=== PATIENT | female | born 1990 | race Caucasian/White ===

== ENCOUNTER 2017-01-29 19:25 | Emergency (ER) | payer SELFPAY ==
[~2017-01-29] VITALS: Ht 160 cm; Wt 90.0 kg
[~2017-01-29 19:25] MED LIST: IBUP-232 PO; IBUP800T23 PO; [UNRECOGNIZED DRUG - CODE] PO
[2017-01-29 19:54] VITALS: BP 120/80; PULSE 81; RESP 18; TEMP 98.6; O2SAT 96
--- NOTE | 2017-01-29 20:04 | PD ---
HPI . cold symptoms and sore throat for 7 days Chief Complaint: Cold / Flu Symptoms Time Seen by Provider: 20:04 Travel History International Travel<30 days: No Contact w/Intl Traveler<30days: No Traveled to known affect area: No History of Present Illness HPI 27-year-old female with no past medical history here with complaints of cold- like symptoms for about 7 days. Patient has had sore throat, fever, chills, ear ache and a dry cough for approximately 7 days. She has missed 2 days of work and tells me that despite treatment with vitamins, airborne and ibuprofen she is not getting better. On examination she does have some aphthous ulcers on the back of her throat and she admits to history of aphthous ulcers in the past. She also reports b/l ear pain 06/01. Her vital signs are within normal limits. She denies any other symptoms. PFSH Past Medical History Anemia: Yes Diminished Hearing: No Reproductive: Yes (menorrhegia) Immunizations Current: Yes : 0 Social History Alcohol Use: Yes (OCC) Tobacco Use: No Substance Use: No Allergies-Medications (Allergen,Severity, Reaction): Coded Allergies: No Known Allergies (Unverified , 02/07/17) Reported Meds & Prescriptions Reported Meds & Active Scripts Active Zofran Odt (Ondansetron Odt) 4 Mg Tab 4 Mg SL Q6HR PRN Ceftin (Cefuroxime Axetil) 500 Mg Tab 500 Mg PO BID 7 Days Review of Systems General / Constitutional: No: Fever Eyes: No: Visual changes HENT: Positive: Sore Throat, Earache, No: Headaches Cardiovascular: No: Chest Pain or Discomfort Respiratory: Positive: Cough, No: Shortness of Breath Gastrointestinal: No: Abdominal Pain Genitourinary: No: Dysuria Musculoskeletal: No: Pain Skin: No Rash Neurologic: No: Weakness Psychiatric: No: Depression Endocrine: No: Polydipsia Hematologic/Lymphatic: No: Easy Bruising Physical Exam Narrative GENERAL: AAO x 3, no acute distress, Well-nourished, well-developed patient. SKIN: Warm and dry. No visible rashes or bruising. HEAD: Normocephalic and atraumatic. EYES: No scleral icterus. No injection or drainage. ENT: No nasal drainage noted. Mucous membranes pink. Airway patent.TM b/l with fluid. Maxillary sinus tenderness. aphthous ulcers scattered on posterior pharynx. no exudates or significant erythema NECK: Supple, trachea midline. No JVD. CARDIOVASCULAR: Regular rate and rhythm without murmurs, gallops, or rubs. RESPIRATORY: Breath sounds equal bilaterally. No accessory muscle use. No rhonchi or rales. GASTROINTESTINAL: Abdomen soft, non-tender, nondistended. EXTREMITIES: No cyanosis or edema. BACK: Nontender without obvious deformity. No CVA tenderness. PSYCH: AAO x 3, normal affect. Data Data Last Documented VS Orders Ibuprofen (Motrin) (01/29/17 20:15) MDM Medical Decision Making Medical Screen Exam Complete: Yes Emergency Medical Condition: Yes Medical Record Reviewed: Yes Differential Diagnosis acute sinusitis, less likely bronchitis, less likely pneumonia Narrative Course 27-year-old female with no past medical history here with complaints of cold- like symptoms for about 7 days. Patient has had sore throat, fever, chills, ear ache and a dry cough for approximately 7 days. She has missed 2 days of work and tells me that despite treatment with vitamins, airborne and ibuprofen she is not getting better. On examination she does have some aphthous ulcers on the back of her throat and she admits to history of aphthous ulcers in the past. She also reports b/l ear pain 7/10. Her vital signs are within normal limits. She denies any other symptoms. Patient seen and examined. She does have a aphthous ulcers on the back of her posterior pharynx. Her tonsils are slightly enlarged without exudates or significant erythema. She does have maxillary sinus tenderness and fluid in her eardrums bilaterally. Her lungs are clear without rhonchi, wheezing, Rales. Ibuprofen given for pain relief. Recommend a course of antibiotics for acute sinusitis. Discussed Magic mouthwash for aphthous ulcers. Patient was in agreement. Advise follow-up with primary care provider Patient verbalized understanding of instructions, questions were answered, and thanked me for their care. I advised them if their condition worsens, please return to the nearest emergency room for further care. Diagnosis Primary Impression: Acute sinusitis Qualified Code: J01.00 - Acute maxillary sinusitis, recurrence not specified Additional Impression: RECURRENT ORAL APHTHAE Patient Instructions: General Instructions, Sinusitis (ED) Additional Instructions: Please return to emergency department if your symptoms return or worsen. Follow up with your primary care provider. Take medications as prescribed. Use ibuprofen or Tylenol as needed for pain. Do not stick any Q-tips into your ears. As we discussed your symptoms will take a few days to resolve. Med/Other Pt SpecificInfo: Prescription(s) given Disposition: DISCHARGE HOME Condition: Jose DugganChasity PA Jan 29, 2017 20:04 Patient Instructions: General Instructions, Sinusitis (ED) Additional Instructions: Please return to emergency department if your symptoms return or worsen. Follow up with your primary care provider. Take medications as prescribed. Use ibuprofen or Tylenol as needed for pain. Do not stick any Q-tips into your ears. As we discussed your symptoms will take a few days to resolve. Med/Other Pt SpecificInfo: Prescription(s) given Scripts Ibuprofen 800 Mg [id number] Mg PO TID #20 TAB Prov:Jaden Cobb MD 01/29/17 Kyibkync-Ipawkacemrkfupl-Siktshnwp Liq (Magic Mouthwash Adult Liq)120 Ml Susp5 Ml SWISH-SWAL ACHS #120 ML Ref 0 Each 5mL contains: Nystatin 200,000units, Diphenhydramine 4.25mg, Viscous Lidocaine 10mg, Banuelos syrup 0.8 mL Prov:Jaden Cobb MD 01/29/17 Amoxicillin-Clavulanate (Augmentin)875-125 mg Trw911 Mg PO BID #20 TAB not for use in CrCl <30 ml/min. Prov:Jaden Cobb MD 01/29/17 Disposition: DISCHARGE HOME Condition: Jose Chasity Duggan Jan 29, 2017 20:04
[2017-01-29 20:05] VITALS: BP 120/80; PULSE 81; RESP 18; TEMP 98.6; O2SAT 96
[2017-01-29] MEDS ORDERED: AUGM875T PO (20:09)
[2017-01-29] MEDS ORDERED: MAGICADU2 SWISH-SWAL (20:09)
[2017-01-29] MEDS ORDERED: IBUP800T23 PO (20:13)
[2017-01-29] MEDS ORDERED: IBUPROFEN 800 MG TAB PO ONE (20:15)
== END 2017-01-29 20:43 | disposition home or self-care (01) ==
LOC: PHEFT 19:25
DX: J01.00 Acute maxillary sinusitis, unspecified (principal); K12.0 Recurrent oral aphthae; H92.03 Otalgia, bilateral; R50.9 Fever, unspecified; R05 Cough; Z86.2 Personal history of diseases of the blood and blood-forming organs and certain disorders involving the immune mechanism; Z87.42 Personal history of other diseases of the female genital tract
CPT/HCPCS: 99283

== ENCOUNTER 2017-02-07 22:26 | Emergency (ER) | payer SELFPAY ==
[~2017-02-07] VITALS: Ht 160 cm; Wt 91.0 kg
[~2017-02-07 22:26] MED LIST changes: +AUGM875T PO; -IBUP-232 PO; +MAGICADU2 SWISH-SWAL; -[UNRECOGNIZED DRUG - CODE] PO
[2017-02-07 22:30] VITALS: BP 128/91; PULSE 133; PULSE 146; RESP 22; TEMP 100.6; O2SAT 100
[2017-02-07 22:51] VITALS: BP 116/66; PULSE 125; RESP 20; TEMP 100.3; O2SAT 100
[2017-02-07 22:54] VITALS: BP 116/66; PULSE 125; RESP 20; TEMP 100.3; O2SAT 100
[2017-02-07 22:58] VITALS: RESP 20; O2SAT 100
[2017-02-07] MEDS ORDERED: SODIUM CHLOR 0.9% 1000 ML INJ 1,000 ML IV ONE (23:00)
[2017-02-07] MEDS ORDERED: KETOROLAC TROMETHAMINE 30 MG/ML (IVP) VIAL IV PUSH ONE (23:00)
[2017-02-07] MEDS ORDERED: ONDANSETRON HCL 4 MG/2 ML VIAL IV PUSH ONE (23:00)
--- NOTE | 2017-02-07 23:03 | PD ---
HPI Chief Complaint: Fever Time Seen by Provider: 22:39 Travel History International Travel<30 days: No Contact w/Intl Traveler<30days: No Traveled to known affect area: No History of Present Illness HPI 27-year-old female complains of fever, headache, sore throat, coughing congestion, body ache, nausea, abdominal cramping. Patient states that the symptoms started about 2 weeks ago. Patient was seen in emergency room 9 days ago and was diagnosed with sinusitis and otitis media. Patient was given prescription for Augmentin and Magic mouthwash and ibuprofen. Patient states that she has been taking Augmentin once a day because of work schedule. Patient has been taking ibuprofen intermittently for fever and aching pain. Patient states that the symptoms got better and get worse again for the past several days. Patient started running 102 fever to 103 fever for the past 2 days. Patient states that she has increasing throat swelling today and that has to be headache this afternoon. Patient states that headache aching headache started the front with radiation to the back of the head. Patient denies any visual change. Patient complains of swollen glands to the neck. Patient states that she had persistent productive cough. Patient states that she has intermittent abdominal cramping with nausea. Patient complains of body ache. Patient denies dysuria or frequency. Patient states that her last menstruation period was 3 months ago. Patient has history of irregular menstruation period. PFSH Past Medical History Hx Anticoagulant Therapy: No Anemia: Yes Cardiovascular Problems: No Chemotherapy: No Cerebrovascular Accident: No Diabetes: No Diminished Hearing: No Reproductive: Yes (menorrhegia) Respiratory: No Immunizations Current: Yes Tetanus Vaccination: < 5 Years Influenza Vaccination: No ?: Not LMP: 3 MONTHS AGO : 0 Past Surgical History Hysterectomy: No Social History Alcohol Use: Yes (OCC) Tobacco Use: No Substance Use: No Allergies-Medications (Allergen,Severity, Reaction): Coded Allergies: No Known Allergies (Unverified , 02/07/17) Reported Meds & Prescriptions Reported Meds & Active Scripts Active No Active Prescriptions or Reported Medications Review of Systems General / Constitutional: Positive: Fever Eyes: No: Visual changes HENT: Positive: Headaches Cardiovascular: No: Chest Pain or Discomfort Respiratory: Positive: Cough, No: Shortness of Breath Gastrointestinal: Positive: Nausea, Abdominal Pain Genitourinary: No: Dysuria Musculoskeletal: Positive: Pain Skin: No Rash Neurologic: No: Weakness Psychiatric: No: Depression Endocrine: No: Polydipsia Hematologic/Lymphatic: No: Easy Bruising Physical Exam Narrative GENERAL: Well-nourished, well-developed patient. SKIN: Warm and dry. HEAD: Normocephalic. EYES: No scleral icterus. No injection or drainage. TM: Clear. Throat: Nonerythematous. NECK: Supple, trachea midline. No JVD. Patient has mild anterior cervical lymphadenopathy. No meningismus CARDIOVASCULAR: Tachycardia rate and rhythm without murmurs, gallops, or rubs. RESPIRATORY: Breath sounds equal bilaterally. No accessory muscle use. GASTROINTESTINAL: Abdomen soft, non-tender, nondistended. MUSCULOSKELETAL: No cyanosis, or edema. BACK: Nontender without obvious deformity. No CVA tenderness. Data Data Last Documented VS Vital Signs Date Time Temp Pulse Resp B/P Pulse Ox O2 Delivery O2 Flow Rate FiO2 02/07/17 22:54 125 20 100 Room Air 02/07/17 22:51 100.3 116/66 Orders Complete Blood Count With Diff (02/07/17 22:50) Comprehensive Metabolic Panel (02/07/17 22:50) Urinalysis - C+S If Indicated (02/07/17 22:50) Influenzae A/B Antigen (02/07/17 22:50) Chest, Single Ap (02/07/17 22:50) Ct Brain W/O Iv Contrast(Rout) (02/07/17 22:50) Iv Access Insert/Monitor (02/07/17 22:50) Ecg Monitoring (02/07/17 22:50) Oximetry (02/07/17 22:50) Ed Urine Pregnancytest Poc (02/07/17 22:50) Ns (Bolus) Inj (02/07/17 23:00) Ketorolac Inj (Toradol Inj) (02/07/17 23:00) Ondansetron Inj (Zofran Inj) (02/07/17 23:00) MDM Medical Decision Making Medical Screen Exam Complete: Yes Emergency Medical Condition: Yes Differential Diagnosis Differential diagnosis including viral syndrome, sinusitis, pharyngitis, bronchitis, pneumonia, gastroenteritis, UTI, pyelonephritis, sepsis. Narrative Course 27-year-old female with fever, headache, sore throat, coughing congestion, abdominal cramping, nausea, body ache. Normal saline solution 1 L IV bolus. Toradol 30 mg IV. Zofran 4 mg IV. Scripts No Active Prescriptions or Reported Meds Johnathan Jaqeuz MD Feb 07, 2017 23:03
--- NOTE | 2017-02-07 23:47 | RADHPO ---
EXAM DATE/TIME: 02/07/2017 23:27 [facility] COMPARISON: No previous studies available for comparison. INDICATIONS : Fever, cough, and body aches. MEDICAL HISTORY : None. SURGICAL HISTORY : None. ENCOUNTER: Initial ACUITY: 1 day PAIN SCORE: 4/10 LOCATION: Bilateral chest FINDINGS: A single view of the chest demonstrates the lungs to be symmetrically aerated without evidence of mas s, infiltrate or effusion. The cardiomediastinal contours are unremarkable. Osseous structures are intact. CONCLUSION: No acute disease. Nolan Harper MD on February 07, 2017 at 23:46 Board Certified Radiologist. This report was verified electronically.
[2017-02-07 23:51] LABS: BASOPHIL % 0.2 % (0.0-2.0); EOSINOPHIL % 0.2 % (0.0-4.0); HEMATOCRIT 35.1 % (35.0-46.0); LYMPH % 8.5 % (9.0-44.0); LYMPHOCYTE # 1.2 TH/MM3 (1.0-4.8); MEAN CELL VOLUME 67.2 FL (80.0-100.0); MEAN CORPUSCULAR HEMOGLOBIN 20.9 PG (27.0-34.0); MONO % 4.8 % (0.0-8.0); NEUT % 86.3 % (16.0-70.0); PLATELET COUNT 367 TH/MM3 (150-450); RED BLOOD COUNT 5.22 MIL/MM3 (4.00-5.30); RED CELL DISTRIBUTION WIDTH 17.5 % (11.6-17.2); WHITE BLOOD COUNT 13.9 TH/MM3 (4.0-11.0)
[2017-02-07 23:52] LABS: BLOOD, URINE NEG (NEG); GLUCOSE,URINE NEG (NEG); KETONE, URINE NEG (NEG); NITRITE,URINE NEG (NEG)
[2017-02-07 23:57] VITALS: BP 103/62; PULSE 113; RESP 18; O2SAT 99
[2017-02-07 23:58] LABS: RBC, URINE 0-3 /hpf (0-3); SQUAMOUS EPITHELIAL CELL URINE 0-5 /hpf (0-5); URINE COLOR YELLOW (YELLW/STRAW); WBC, URINE 0-2 /hpf (0-5)
[2017-02-07 23:58] LABS: CHLORIDE 107 MEQ/L (98-107); POTASSIUM 3.7 MEQ/L (3.5-5.1); SODIUM (NA) 142 MEQ/L (136-145)
[2017-02-07 23:59] LABS: COMMENT (UR) CULT NOT INDICATED; CULTURE IF INDICATED CULT NOT INDICATED
[2017-02-08 00:01] LABS: ANION GAP 9 MEQ/L (5-15); BICARBONATE 26.5 MEQ/L (21.0-32.0)
[2017-02-08 00:02] LABS: BLOOD UREA NITROGEN 9 MG/DL (7-18)
[2017-02-08 00:03] LABS: HEMO FLAGS AUTO DIFF
[2017-02-08 00:04] LABS: ALT (GPT) 34 U/L (10-53)
[2017-02-08 00:05] LABS: AST (GOT) 11 U/L (15-37); GLOMERULAR FILTRATION RATE 91 ML/MIN (>89)
[2017-02-08 00:06] LABS: TOTAL BILIRUBIN ADULT 0.5 MG/DL (0.2-1.0)
[2017-02-08 00:07] LABS: ALKALINE PHOSPHATASE 93 U/L (45-117)
--- NOTE | 2017-02-08 00:12 | PD ---
Physical Exam Date Seen by Provider: Feb 08, 2017 Time Seen by Provider: 00:11 Narrative Accepted in transfer of care from Dr. Jaquez Data Data Last Documented VS Vital Signs Date Time Temp Pulse Resp B/P Pulse Ox O2 Delivery O2 Flow Rate FiO2 02/08/17 00:59 99 18 93/63 99 Room Air 02/08/17 00:35 98.4 Orders Complete Blood Count With Diff (02/07/17 22:50) Comprehensive Metabolic Panel (02/07/17 22:50) Urinalysis - C+S If Indicated (02/07/17 22:50) Influenzae A/B Antigen (02/07/17 22:50) Chest, Single Ap (02/07/17 22:50) Ct Brain W/O Iv Contrast(Rout) (02/07/17 22:50) Iv Access Insert/Monitor (02/07/17 22:50) Ecg Monitoring (02/07/17 22:50) Oximetry (02/07/17 22:50) Ed Urine Pregnancytest Poc (02/07/17 22:50) Sodium Chlor 0.9% 1000 Ml Inj (Ns 1000 M (02/07/17 23:00) Ketorolac Inj (Toradol Inj) (02/07/17 23:00) Ondansetron Inj (Zofran Inj) (02/07/17 23:00) Sodium Chlor 0.9% 1000 Ml Inj (Ns 1000 M (02/08/17 01:15) Ceftriaxone Inj (Rocephin Inj) (02/08/17 01:15) Labs Laboratory Tests Test 02/07/17 02/07/17 23:25 23:30 Urine Color YELLOW Urine Turbidity CLEAR Urine pH 8.0 Urine Specific [place] 1.013 Urine Protein NEG mg/dL Urine Glucose (UA) NEG mg/dL Urine Ketones NEG mg/dL Urine Occult Blood NEG Urine Nitrite NEG Urine Bilirubin NEG Urine Leukocyte Esterase NEG Urine RBC 0-3 /hpf Urine WBC 0-2 /hpf Urine Squamous Epithelial 0-5 /hpf Cells Microscopic Urinalysis Comment CULT NOT INDICATED White Blood Count 13.9 TH/MM3 Red Blood Count 5.22 MIL/MM3 Hemoglobin 10.9 GM/DL Hematocrit 35.1 % Mean Corpuscular Volume 67.2 FL Mean Corpuscular Hemoglobin 20.9 PG Mean Corpuscular Hemoglobin 31.0 % Concent Red Cell Distribution Width 17.5 % Platelet Count 367 TH/MM3 Mean Platelet Volume 7.9 FL Neutrophils (%) (Auto) 86.3 % Lymphocytes (%) (Auto) 8.5 % Monocytes (%) (Auto) 4.8 % Eosinophils (%) (Auto) 0.2 % Basophils (%) (Auto) 0.2 % Neutrophils # (Auto) 12.0 TH/MM3 Lymphocytes # (Auto) 1.2 TH/MM3 Monocytes # (Auto) 0.7 TH/MM3 Eosinophils # (Auto) 0.0 TH/MM3 Basophils # (Auto) 0.0 TH/MM3 CBC Comment AUTO DIFF Differential Comment AUTO DIFF CONFIRMED Platelet Estimate NORMAL Platelet Morphology Comment ENLARGED Sodium Level 142 MEQ/L Potassium Level 3.7 MEQ/L Chloride Level 107 MEQ/L Carbon Dioxide Level 26.5 MEQ/L Anion Gap 9 MEQ/L Blood Urea Nitrogen 9 MG/DL Creatinine 0.77 MG/DL Estimat Glomerular Filtration 91 ML/MIN Rate Random Glucose 103 MG/DL Calcium Level 8.4 MG/DL Total Bilirubin 0.5 MG/DL Aspartate Amino Transf 11 U/L (AST/SGOT) Alanine Aminotransferase 34 U/L (ALT/SGPT) Alkaline Phosphatase 93 U/L Total Protein 7.8 GM/DL Albumin 3.6 GM/DL [facility] Medical Record Reviewed: Yes Supervised Visit with DANYELL: No Interpretation(s) CBC & BMP Diagram 02/07/17 23:30 Vital Signs Date Time Temp Pulse Resp B/P Pulse Ox O2 Delivery O2 Flow Rate FiO2 02/08/17 00:59 99 18 93/63 99 Room Air 02/08/17 00:59 99 18 99 Room Air 02/08/17 00:35 98.4 02/08/17 00:34 18 02/07/17 23:57 113 18 103/62 99 Room Air 02/07/17 22:58 20 100 Room Air 02/07/17 22:54 100.3 125 20 116/66 100 Room Air 02/07/17 22:54 125 20 100 Room Air 02/07/17 22:51 100.3 125 20 116/66 100 02/07/17 22:30 100.6 133 22 128/[address] brain noncontrast per reading radiologist Dr. Harper no acute abnormality; chest x-ray reading per radiologist Dr. Harper no lobar infiltrate Urinalysis found to be in normal range Influenza A/B antigen negative [id number] hCG negative Differential Diagnosis Accepted in transfer of care from Dr. Jaquez please refer to his dictation Narrative Course Accepted in transfer of care from Dr. Jaquez; follow up on pending labs Patient informed of lab results reports that the reason she was taking the medication Augmentin 875 mg once daily instead of twice daily as prescribed as she cannot tolerate the medication causing too much nausea and GI upset; CT brain noncontrast reveals no acute abnormality chest x-ray reveals no lobar infiltrate white count is elevated 13,900 with left shift however chemistries urinalysis and influenza antigen studies all within normal range or negative. Patient states that she does not feel she can continue with the Augmentin even though I'm going to write her prescription for Zofran and therefore will have the patient discontinue Augmentin we'll change antibiotic to Ceftin. Patient received 1 dose of Rocephin 1 g IV piggyback while in the emergency department. Patient is otherwise stable for outpatient management. Diagnosis Primary Impression: Febrile respiratory illness Referrals: Primary Care Physician call for appointment Patient Instructions: General Instructions Departure Forms: Tests/Procedures, Work Release Special Instructions: no work x 1 day Additional Instruction: Increase fluid hydration Discontinue Augmentin and begin Ceftin as prescribed Take nausea vomiting medicine as prescribed as needed Take acetaminophen/Tylenol every 4 hours as needed for fever 100.4F or greater or for minor pain Take ibuprofen/Advil/Motrin every 6-8 hours as needed for fever 100.4F or greater or for pain associated with inflammation Return to the emergency department for any concerns or change in condition No work times one day Follow-up with your primary care provider Med/Other Pt SpecificInfo: Prescription(s) given Scripts Ondansetron Odt (Zofran Odt)4 Mg Tab4 Mg SL Q6HR PRN (Nausea/Vomiting) #10 TAB Ref 0 Prov:Serena Cid MD 02/08/17 Cefuroxime (Ceftin)500 Mg Ijn088 Mg PO BID 7 Days Ref 0 Prov:Serena Cid MD 02/08/17 Disposition: 01 DISCHARGE HOME Condition: Stable Serena Cid MD Feb 08, 2017 00:12
--- NOTE | 2017-02-08 00:19 | RADHPO ---
EXAM DATE/TIME: 02/07/2017 23:57 [facility] COMPARISON: No previous studies available for comparison. INDICATIONS : Headache for two weeks. RADIATION DOSE: 59.56 CTDIvol (mGy) MEDICAL HISTORY : None SURGICAL HISTORY : None. ENCOUNTER: Initial ACUITY: 2 weeks PAIN SCALE: 5/10 LOCATION: cranial TECHNIQUE: Multiple contiguous axial images were obtained of the head. Using automated exposure control and adj ustment of the mA and/or kV according to patient size, radiation dose was kept as low as reasonably a chievable to obtain optimal diagnostic quality images. FINDINGS: CEREBRUM: The ventricles are normal for age. No evidence of midline shift, mass lesion, hemorrhage or acute in farction. No extra-axial fluid collections are seen. POSTERIOR FOSSA: The cerebellum and brainstem are intact. The 4th ventricle is midline. The cerebellopontine angle i s unremarkable. EXTRACRANIAL: The visualized portion of the orbits is intact. SKULL: The calvaria is intact. No evidence of skull fracture. CONCLUSION: Normal examination for a patient of this age. Nolan Harper MD on February 08, 2017 at 0:16 Board Certified Radiologist. This report was verified electronically.
[2017-02-08 00:35] VITALS: TEMP 98.4
[2017-02-08 00:59] VITALS: BP 93/63; PULSE 99; RESP 18; O2SAT 99
[2017-02-08 01:10] LABS: PLATELET ESTIMATE SMEAR NORMAL (NORMAL); PLATELET MORPHOLOGY ENLARGED (NORMAL); SCAN/DIFF AUTO DIFF CONFIRMED
[2017-02-08] MEDS ORDERED: ZOFR4TAB3 SL (01:15)
[2017-02-08] MEDS ORDERED: SODIUM CHLOR 0.9% 1000 ML INJ 1,000 ML IV ONE (01:15)
[2017-02-08] MEDS ORDERED: cefTRIAXone INJ 1,000 MG in SODIUM CHLORIDE 0.9% INJ 100 ML IV ONE (01:15)
[2017-02-08] MEDS ORDERED: CEFT500T3 PO (01:15)
[2017-02-08 02:15] VITALS: BP 92/50; PULSE 88; RESP 18; O2SAT 99
== END 2017-02-08 02:33 | disposition home or self-care (01) ==
LOC: PHED 22:26
DX: J98.9 Respiratory disorder, unspecified (principal); R50.9 Fever, unspecified; R51 Headache; J02.9 Acute pharyngitis, unspecified; R05 Cough; D64.9 Anemia, unspecified; R00.0 Tachycardia, unspecified; R11.0 Nausea
CPT/HCPCS: 70450; 71010; 80053; 81001; 84703; 85025; 87804; 96361; 96365; 96375; 99284; J0696; J1885; J2405; J7030

== ENCOUNTER 2017-09-09 15:46 | Observation (INO) | payer SELFPAY ==
[~2017-09-09] VITALS: Ht 160 cm; Wt 88.1 kg
[2017-09-09] VITALS (7 sets, daily range): BP systolic 104–126; BP diastolic 56–66; PULSE 99–116; RESP 16–18; TEMP 97.9–100.7; O2SAT 96–98
[~2017-09-09 15:46] MED LIST changes: -AUGM875T PO; +CEFT500T3 PO; -IBUP800T23 PO; -MAGICADU2 SWISH-SWAL; +ZOFR4TAB3 SL
--- NOTE | 2017-09-09 18:23 | PD ---
HPI Chief Complaint: GI Complaint Time Seen by Provider: 18:07 Travel History International Travel<30 days: No Contact w/Intl Traveler<30days: No Traveled to known affect area: No History of Present Illness HPI 27yo F with no significant PMH presents to the ED with multiple complaints. Pt states that she started feeling nauseous 3 days ago and was vomiting and then started having headache as well as generalized weakness, muscle ache. Also with cough and brown vaginal discharge. Said her abdomen is sore from vomiting. Also with right sided chest pain with cough that is sharp. PFSH Past Medical History Hx Anticoagulant Therapy: No Anemia: Yes Cardiovascular Problems: No Chemotherapy: No Cerebrovascular Accident: No Diabetes: No Diminished Hearing: No Reproductive: Yes (menorrhegia) Respiratory: No Immunizations Current: Yes Influenza Vaccination: No ?: Not LMP: 08/27/17 : 0 Past Surgical History Hysterectomy: No Social History Alcohol Use: Yes (OCC) Tobacco Use: No Substance Use: No Allergies-Medications (Allergen,Severity, Reaction): Coded Allergies: No Known Allergies (Unverified , 09/09/17) Reported Meds & Prescriptions Reported Meds & Active Scripts Active Review of Systems Except as stated in HPI: all other systems reviewed are Neg Physical Exam Narrative GENERAL: 27yo F in mild distress. SKIN: Focused skin assessment warm/dry. HEAD: Atraumatic. Normocephalic. EYES: Pupils equal and round. No scleral icterus. No injection or drainage. ENT: No nasal bleeding or discharge. Mucous membranes pink and moist. NECK: No nuchal rigidity. +Cervical anterior lymphadenopathy. CARDIOVASCULAR: Regular rate and rhythm. No murmur appreciated. RESPIRATORY: No accessory muscle use. Clear to auscultation. Breath sounds equal bilaterally. PELVIC: +Blood. No CMT or adnexal tenderness bilaterally. GASTROINTESTINAL: Abdomen soft, mild diffuse ttp. No rebound tenderness or guarding. MUSCULOSKELETAL: No obvious deformities. No clubbing. No cyanosis. No edema. NEUROLOGICAL: Awake and alert. No obvious cranial nerve deficits. Motor grossly within normal limits. Normal speech. PSYCHIATRIC: Appropriate mood and affect; insight and judgment normal. Data Data Last Documented VS Vital Signs Date Time Temp Pulse Resp B/P (MAP) Pulse Ox O2 Delivery O2 Flow Rate FiO2 09/09/17 21:00 99.3 99 18 106/56 (73) 98 Room Air Orders Orders Blood Culture (09/09/17 18:17) Complete Blood Count With Diff (09/09/17 18:17) Troponin I (09/09/17 18:17) Electrocardiogram (09/09/17 ) Chest, Single Ap (09/09/17 ) Bhcg Screen Qualitative (09/09/17 18:17) Lactic Acid Sepsis Protocol (09/09/17 18:17) Prothrombin Time / Inr (Pt) (09/09/17 18:17) Act Partial Throm Time (Ptt) (09/09/17 18:17) Comprehensive Metabolic Panel (09/09/17 18:17) Sodium Chlor 0.9% 1000 Ml Inj (Ns 1000 M (09/09/17 18:30) Magnesium (Mg) (09/09/17 18:17) Urinalysis - C+S If Indicated (09/09/17 18:17) Influenzae A/B Antigen (09/09/17 18:17) Gc And Chlamydia Pcr (09/09/17 18:17) Wet Prep Profile (09/09/17 18:17) Ketorolac Inj (Toradol Inj) (09/09/17 18:30) Ondansetron Inj (Zofran Inj) (09/09/17 18:45) Ceftriaxone Inj (Rocephin Inj) (09/09/17 19:15) Azithromycin Inj (Zithromax Inj) (09/09/17 19:15) Ondansetron Inj (Zofran Inj) (09/09/17 20:45) Sodium Chlor 0.9% 1000 Ml Inj (Ns 1000 M (09/09/17 20:45) Ct Pulmonary Angiogram (09/09/17 20:45) Admit Order (Ed Use Only) (09/09/17 21:23) Labs Laboratory Tests Test 09/09/17 18:10 09/09/17 18:15 09/09/17 18:30 09/09/17 18:50 Urine Color YELLOW Urine Turbidity SLIGHT Urine pH 6.0 Urine Specific [place] 1.034 Urine Protein 100 mg/dL Urine Glucose (UA) NEG mg/dL Urine Ketones 80 OR GREATER mg/dL Urine Occult Blood LARGE Urine Nitrite NEG Urine Bilirubin NEG Urine Leukocyte Esterase NEG Urine RBC 100-200 /hpf Urine WBC 0-2 /hpf Urine Squamous Epithelial Cells 6-8 /hpf Urine Mucus MOD /lpf Microscopic Urinalysis Comment CULT NOT INDICATED White Blood Count 19.4 TH/MM3 Red Blood Count 5.12 MIL/MM3 Hemoglobin 11.1 GM/DL Hematocrit 36.0 % Mean Corpuscular Volume 70.2 FL Mean Corpuscular Hemoglobin 21.6 PG Mean Corpuscular Hemoglobin Concent 30.8 % Red Cell Distribution Width 15.3 % Platelet Count 305 TH/MM3 Mean Platelet Volume 8.4 FL Neutrophils (%) (Auto) 86.5 % Lymphocytes (%) (Auto) 7.0 % Monocytes (%) (Auto) 6.3 % Eosinophils (%) (Auto) 0.0 % Basophils (%) (Auto) 0.2 % Neutrophils # (Auto) 16.8 TH/MM3 Lymphocytes # (Auto) 1.4 TH/MM3 Monocytes # (Auto) 1.2 TH/MM3 Eosinophils # (Auto) 0.0 TH/MM3 Basophils # (Auto) 0.0 TH/MM3 CBC Comment AUTO DIFF Differential Total Cells Counted 100 Neutrophils % (Manual) 83 % Band Neutrophils % 5 % Lymphocytes % 7 % Monocytes % 4 % Neutrophils # (Manual) 17.3 TH/MM3 Metamyelocytes 1 % Differential Comment FINAL DIFF MANUAL Dohle Bodies PRESENT Platelet Estimate NORMAL Platelet Morphology Comment NORMAL Ovalocytes 1+ Prothrombin Time 13.7 SEC Prothromb Time International Ratio 1.2 RATIO Activated Partial Thromboplast Time 34.3 SEC Blood Urea Nitrogen 8 MG/DL Creatinine 0.87 MG/DL Random Glucose 91 MG/DL Total Protein 8.5 GM/DL Albumin 3.6 GM/DL Calcium Level 8.7 MG/DL Magnesium Level 1.8 MG/DL Alkaline Phosphatase 92 U/L Aspartate Amino Transf (AST/SGOT) 15 U/L Alanine Aminotransferase (ALT/SGPT) 31 U/L Total Bilirubin 1.1 MG/DL Sodium Level 134 MEQ/L Potassium Level 3.6 MEQ/L Chloride Level 99 MEQ/L Carbon Dioxide Level 23.5 MEQ/L Anion Gap 12 MEQ/L Estimat Glomerular Filtration Rate 79 ML/MIN Troponin I LESS THAN 0.02 NG/ML Beta HCG, Qualitative LESS THAN 1 MIU/ML Lactic Acid Level 1.7 mmol/L Clue Cells (Wet Prep) NONE SEEN Vaginal Trichomonas (Wet Prep) NONE SEEN Vaginal Yeast (Wet Prep) NONE SEEN Chlamydia trachomatis DNA (PCR) NOT DETECTED Neisseria gonorrhoeae DNA (PCR) NOT DETECTED MDM Medical Decision Making Medical Screen Exam Complete: Yes Emergency Medical Condition: Yes Differential Diagnosis Influenza vs. viral syndrome vs. UTI vs. pneumonia Narrative Course 27yo F with fever and multiple medical complaints. Labs reviewed, leukocytosis at 19.4. Bilirubin 1.1. Lactic acid pending. pending. UA showed squamous and RBC. Culture not indicated. Wet prep negative. CXR showed abnormal right hilar region asymmetrically more dense than left without enlargement could represent occult infiltrate. Pt will be empirically treated with IV antibiotics. Pt just got zofran, NS IVF and toradol at end of my shift and sign out to next team to reevaluate after medications and follow up influenza, lactic acid. Diagnosis Primary Impression: Sepsis Qualified Codes: A41.9 - Sepsis, unspecified organism Scripts Levofloxacin (Levofloxacin) 500 Mg Tablet 500 MG PO DAILY for Infection, #5 TAB 0 Refills Prov: Monalisa Royal MD 09/10/17 Lorraine Smith DO Sep 09, 2017 18:23
[2017-09-09] MEDS ORDERED: SODIUM CHLOR 0.9% 1000 ML INJ 1,000 ML IV ONE (18:30)
[2017-09-09] MEDS ORDERED: KETOROLAC TROMETHAMINE 30 MG/ML (IVP) VIAL IV PUSH ONE (18:30)
--- NOTE | 2017-09-09 18:36 | RADRPT ---
EXAM DATE/TIME: 09/09/2017 18:25 [facility] COMPARISON: CHEST SINGLE AP, February 07, 2017, 23:27. INDICATIONS : Chest pain and nausea. MEDICAL HISTORY : None. SURGICAL HISTORY : None. ENCOUNTER: Initial ACUITY: 3 days PAIN SCORE: 3/10 LOCATION: Bilateral chest FINDINGS: A single view of the chest demonstrates the lungs to be symmetrically aerated without evidence of mas s, infiltrate or effusion. The cardiomediastinal contours are unremarkable. Osseous structures are intact. The right hilum is somewhat more prominent asymmetric in density relative to left base is que stioned as to an occult summation of an infiltrate CONCLUSION: Abnormal right hilar region asymmetrically more dense than the left without enlargement which could r epresent an occult infiltrate. Phani Sumner MD on September 09, 2017 at 18:33 Board Certified Radiologist. This report was verified electronically.
[2017-09-09 18:38] LABS: CHLORIDE 99 MEQ/L (98-107); POTASSIUM 3.6 MEQ/L (3.5-5.1); SODIUM (NA) 134 MEQ/L (136-145)
[2017-09-09 18:39] LABS: BLOOD, URINE LARGE (NEG); GLUCOSE,URINE NEG (NEG); KETONE, URINE 80 OR GREATER mg/dL (NEG); NITRITE,URINE NEG (NEG)
[2017-09-09 18:40] LABS: AUTOMATED NEUTROPHIL # 16.8 TH/MM3 (1.8-7.7); BASOPHIL % 0.2 % (0.0-2.0); HEMO FLAGS AUTO DIFF; LYMPHOCYTE # 1.4 TH/MM3 (1.0-4.8); MEAN CELL VOLUME 70.2 FL (80.0-100.0); MEAN CORPUSCULAR HEMOGLOBIN 21.6 PG (27.0-34.0); MEAN CORPUSCULAR HGB CONC 30.8 % (32.0-36.0); MONO % 6.3 % (0.0-8.0); NEUT % 86.5 % (16.0-70.0); PLATELET COUNT 305 TH/MM3 (150-450); RED BLOOD COUNT 5.12 MIL/MM3 (4.00-5.30); RED CELL DISTRIBUTION WIDTH 15.3 % (11.6-17.2); WHITE BLOOD COUNT 19.4 TH/MM3 (4.0-11.0)
[2017-09-09 18:42] LABS: ANION GAP 12 MEQ/L (5-15); APTT (PATIENT) 34.3 SEC (24.3-30.1); BICARBONATE 23.5 MEQ/L (21.0-32.0); BLOOD UREA NITROGEN 8 MG/DL (7-18); INTERNATIONAL NORMALIZED RATIO 1.2 RATIO; MAGNESIUM 1.8 MG/DL (1.5-2.5); PROTHROMBIN TIME - PATIENT 13.7 SEC (9.8-11.6)
[2017-09-09 18:44] LABS: URINE COLOR YELLOW (YELLW/STRAW)
[2017-09-09 18:45] LABS: COMMENT (UR) CULT NOT INDICATED; CULTURE IF INDICATED CULT NOT INDICATED; MUCUS URINE MOD /lpf (OCC); RBC, URINE 100-200 /hpf (0-3); WBC, URINE 0-2 /hpf (0-5)
[2017-09-09 18:45] LABS: ALT (GPT) 31 U/L (10-53); AST (GOT) 15 U/L (15-37); GLOMERULAR FILTRATION RATE 79 ML/MIN (>89)
[2017-09-09] MEDS ORDERED: ONDANSETRON HCL 4 MG/2 ML VIAL IV PUSH ONE (18:45)
[2017-09-09 18:46] LABS: TOTAL BILIRUBIN ADULT 1.1 MG/DL (0.2-1.0)
[2017-09-09 18:48] LABS: ALKALINE PHOSPHATASE 92 U/L (45-117)
[2017-09-09 19:08] LABS: BHCG SCREEN QUALITATIVE LESS THAN 1 MIU/ML (0-5)
[2017-09-09] MEDS ORDERED: AZITHROMYCIN INJ 500 MG in SODIUM CHLOR 0.9% 250 ML INJ 250 ML IV ONE (19:15)
[2017-09-09] MEDS ORDERED: cefTRIAXone INJ 1,000 MG in SODIUM CHLORIDE 0.9% INJ 100 ML IV ONE (19:15)
[2017-09-09 19:19] LABS: BANDS 5 % (0-6); METAMYELOCYTES 1 % (0-1); NEUTROPHIL # MANUAL DIFF 17.3 TH/MM3 (1.8-7.7); POLYS (SEG NEUTROPHILS) 83 % (16-70); WBC DIFF SAMPLE 100
[2017-09-09 19:20] LABS: DOHLE BODIES PRESENT (NONE SEEN); OVALOCYTES 1+ (NORMAL)
[2017-09-09 19:21] LABS: PLATELET ESTIMATE SMEAR NORMAL (NORMAL); PLATELET MORPHOLOGY NORMAL (NORMAL); SCAN/DIFF FINAL DIFF MANUAL
--- NOTE | 2017-09-09 20:41 | PD ---
Physical Exam Time Seen by Provider: 20:[address] Smith with this patient with me to make a disposition. The patient apparently fit sepsis criteria. She also has nausea and vomiting and back pain as well as a headache. The AP chest is suspicious of an occult infiltrate on the right hilar area. Despite 8 mg of Zofran IV the patient still has nausea. The patient does have an elevated white count at 19,400 with 87% neutrophils and a bandemia of 5. Data Data Last Documented VS Vital Signs Date Time Temp Pulse Resp B/P (MAP) Pulse Ox O2 Delivery O2 Flow Rate FiO2 09/09/17 21:00 99.3 99 18 106/56 (73) 98 Room Air Orders Orders Blood Culture (09/09/17 18:) Complete Blood Count With Diff (09/09/17 18:) Troponin I (09/09/17 18:17) Electrocardiogram (09/09/17 ) Chest, Single Ap (09/09/17 ) Bhcg Screen Qualitative (09/09/17 18:17) Lactic Acid Sepsis Protocol (09/09/17 18:17) Prothrombin Time / Inr (Pt) (09/09/17 18:17) Act Partial Throm Time (Ptt) (09/09/17 18:17) Comprehensive Metabolic Panel (09/09/17 18:17) Sodium Chlor 0.9% 1000 Ml Inj (Ns 1000 M (09/09/17 18:30) Magnesium (Mg) (09/09/17 18:17) Urinalysis - C+S If Indicated (09/09/17 18:17) Influenzae A/B Antigen (09/09/17 18:17) Gc And Chlamydia Pcr (09/09/17 18:17) Wet Prep Profile (09/09/17 18:17) Ketorolac Inj (Toradol Inj) (09/09/17 18:30) Ondansetron Inj (Zofran Inj) (09/09/17 18:45) Ceftriaxone Inj (Rocephin Inj) (09/09/17 19:15) Azithromycin Inj (Zithromax Inj) (09/09/17 19:15) Ondansetron Inj (Zofran Inj) (09/09/17 20:45) Sodium Chlor 0.9% 1000 Ml Inj (Ns 1000 M (09/09/17 20:45) Ct Pulmonary Angiogram (09/09/17 20:45) Admit Order (Ed Use Only) (09/09/17 21:23) Labs Laboratory Tests Test 09/09/17 18:10 09/09/17 18:15 09/09/17 18:30 09/09/17 18:50 Urine Color YELLOW Urine Turbidity SLIGHT Urine pH 6.0 Urine Specific [place] 1.034 Urine Protein 100 mg/dL Urine Glucose (UA) NEG mg/dL Urine Ketones 80 OR GREATER mg/dL Urine Occult Blood LARGE Urine Nitrite NEG Urine Bilirubin NEG Urine Leukocyte Esterase NEG Urine RBC 100-200 /hpf Urine WBC 0-2 /hpf Urine Squamous Epithelial Cells 6-8 /hpf Urine Mucus MOD /lpf Microscopic Urinalysis Comment CULT NOT INDICATED White Blood Count 19.4 TH/MM3 Red Blood Count 5.12 MIL/MM3 Hemoglobin 11.1 GM/DL Hematocrit 36.0 % Mean Corpuscular Volume 70.2 FL Mean Corpuscular Hemoglobin 21.6 PG Mean Corpuscular Hemoglobin Concent 30.8 % Red Cell Distribution Width 15.3 % Platelet Count 305 TH/MM3 Mean Platelet Volume 8.4 FL Neutrophils (%) (Auto) 86.5 % Lymphocytes (%) (Auto) 7.0 % Monocytes (%) (Auto) 6.3 % Eosinophils (%) (Auto) 0.0 % Basophils (%) (Auto) 0.2 % Neutrophils # (Auto) 16.8 TH/MM3 Lymphocytes # (Auto) 1.4 TH/MM3 Monocytes # (Auto) 1.2 TH/MM3 Eosinophils # (Auto) 0.0 TH/MM3 Basophils # (Auto) 0.0 TH/MM3 CBC Comment AUTO DIFF Differential Total Cells Counted 100 Neutrophils % (Manual) 83 % Band Neutrophils % 5 % Lymphocytes % 7 % Monocytes % 4 % Neutrophils # (Manual) 17.3 TH/MM3 Metamyelocytes 1 % Differential Comment FINAL DIFF MANUAL Dohle Bodies PRESENT Platelet Estimate NORMAL Platelet Morphology Comment NORMAL Ovalocytes 1+ Prothrombin Time 13.7 SEC Prothromb Time International Ratio 1.2 RATIO Activated Partial Thromboplast Time 34.3 SEC Blood Urea Nitrogen 8 MG/DL Creatinine 0.87 MG/DL Random Glucose 91 MG/DL Total Protein 8.5 GM/DL Albumin 3.6 GM/DL Calcium Level 8.7 MG/DL Magnesium Level 1.8 MG/DL Alkaline Phosphatase 92 U/L Aspartate Amino Transf (AST/SGOT) 15 U/L Alanine Aminotransferase (ALT/SGPT) 31 U/L Total Bilirubin 1.1 MG/DL Sodium Level 134 MEQ/L Potassium Level 3.6 MEQ/L Chloride Level 99 MEQ/L Carbon Dioxide Level 23.5 MEQ/L Anion Gap 12 MEQ/L Estimat Glomerular Filtration Rate 79 ML/MIN Troponin I LESS THAN 0.02 NG/ML Beta HCG, Qualitative LESS THAN 1 MIU/ML Lactic Acid Level 1.7 mmol/L Clue Cells (Wet Prep) NONE SEEN Vaginal Trichomonas (Wet Prep) NONE SEEN Vaginal Yeast (Wet Prep) NONE SEEN MDM Medical Record Reviewed: Yes Supervised Visit with DANYELL: No Differential Diagnosis Sepsis, pneumonia, urinary tract infection, dehydration, viral syndrome, anemia Narrative Course The patient came in with a temperature of 100.7, pulse of 116 and has symptoms of a "bad cough", fever, chills and sweats. The patient is not sure she can take pills at home and wants to be admitted. She has no insurance and no physician to follow-up with. The patient wants to be admitted, she states she is too sick to go home. It is questionable whether she can hold down by mouth medications with her nausea/vomiting. Impression: Right pneumonia Sepsis Criteria SIRS Criteria (2 or more): Heart rate over 90, WBC > 24573, < 4000 or > 10% bands Sepsis Criteria (SIRS+source): Infect source susp/known Physician Communication Physician Communication I discussed the patient with Dr. Sood, the patient will be admitted to her. Diagnosis Primary Impression: Sepsis Qualified Codes: A41.9 - Sepsis, unspecified organism Additional Impressions: Intractable nausea and vomiting Pneumonia Admitting Information Admitting Physician Requests: Admit Scripts No Active Prescriptions or Reported Meds Jake Ordonez MD Sep 09, 2017 20:41
[2017-09-09] MEDS ORDERED: SODIUM CHLOR 0.9% 1000 ML INJ 1,000 ML IV SCH (20:45)
[2017-09-09] MEDS ORDERED: ONDANSETRON HCL 4 MG/2 ML VIAL IV ONE (20:45)
[2017-09-09] MEDS ORDERED: METOCLOPRAMIDE HCL 10 MG/2 ML VIAL IVS ONE (21:30)
[2017-09-09] MEDS ORDERED: SODIUM CHLORIDE 0.9% FLUSH 10 ML FLUSH IV FLUSH PRN (21:30)
[2017-09-09] MEDS ORDERED: NALOXONE HCL 0.4 MG/ML AMP IV PUSH PRN (21:30)
[2017-09-09] MEDS ORDERED: IOHEXOL 350 MG/ML 10 ML VIAL (for RAD DIAG) IVCONTRAST ONE (22:17)
--- NOTE | 2017-09-09 22:32 | RADRPT ---
EXAM DATE/TIME: 09/09/2017 22:12 [facility] COMPARISON: CHEST SINGLE AP, September 09, 2017, 18:25. INDICATIONS : Short of breath. Headache, nausea and vomiting. Evaluate for embolism. IV CONTRAST: 65 cc Omnipaque 350 (iohexol) IV RADIATION DOSE: 19.07 CTDIvol (mGy) MEDICAL HISTORY : None SURGICAL HISTORY : None. ENCOUNTER: Initial ACUITY: 3 days PAIN SCALE: 0/10 LOCATION: chest TECHNIQUE: Volumetric scanning of the chest was performed using a pulmonary embolism protocol MIP images were re constructed. Using automated exposure control and adjustment of the mA and/or kV according to patien t size, radiation dose was kept as low as reasonably achievable to obtain optimal diagnostic quality images. DICOM format image data is available electronically for review and comparison. Follow-up recommendations for detected pulmonary nodules are based at a minimum on nodule size and pa tient risk factors according to Fleischner Society Guidelines. FINDINGS: PULMONARY ARTERIES: No filling defects are seen in the pulmonary arteries through the segmental level. LUNGS: There is dense consolidated infiltrate in the medial mid posterior right chest spares segment of the right lower lobe. This accounts for the abnormal hilum on the AP chest. PLEURAE: There is no pleural thickening or pleural effusion. MEDIASTINUM: There is good visualization of the great vessels of the middle mediastinum. No evidence of mediastin al or hilar adenopathy/mass. MUSCULOSKELETAL: Within normal limits for patient age. MISCELLANEOUS: The visualized upper abdominal organs demonstrate no acute abnormality. CONCLUSION: Negative for pulmonary embolism. Dense consolidated infiltrate in the superior segmen t medially of the right lower lobe which accounts for the dense appearance and abnormality of the rig ht hilum on AP chest. Phani Sumner MD on September 09, 2017 at 22:27 Board Certified Radiologist. This report was verified electronically.
[2017-09-10] VITALS: BP 100/60; PULSE 90; RESP 14; TEMP 97.6; O2SAT 98
[2017-09-10 00:12] LABS: CHLAMYDIA PCR NOT DETECTED (NOT DETECT); NEISSERIA PCR NOT DETECTED (NOT DETECT)
[2017-09-10 06:46] LABS: AUTOMATED NEUTROPHIL # 9.5 TH/MM3 (1.8-7.7); BASOPHIL % 0.2 % (0.0-2.0); EOSINOPHIL % 0.3 % (0.0-4.0); HEMATOCRIT 30.5 % (35.0-46.0); LYMPH % 11.8 % (9.0-44.0); LYMPHOCYTE # 1.4 TH/MM3 (1.0-4.8); MEAN CELL VOLUME 69.5 FL (80.0-100.0); MEAN CORPUSCULAR HEMOGLOBIN 21.1 PG (27.0-34.0); MEAN CORPUSCULAR HGB CONC 30.3 % (32.0-36.0); MONO % 7.4 % (0.0-8.0); NEUT % 80.3 % (16.0-70.0); PLATELET COUNT 259 TH/MM3 (150-450); RED BLOOD COUNT 4.38 MIL/MM3 (4.00-5.30); RED CELL DISTRIBUTION WIDTH 14.9 % (11.6-17.2); WHITE BLOOD COUNT 11.8 TH/MM3 (4.0-11.0)
[2017-09-10 06:55] LABS: HEMO FLAGS AUTO DIFF; POTASSIUM 3.5 MEQ/L (3.5-5.1)
[2017-09-10 07:42] LABS: BICARBONATE 24.3 MEQ/L (21.0-32.0)
[2017-09-10 07:55] LABS: SCAN/DIFF AUTO DIFF CONFIRMED
[2017-09-10 08:00] VITALS: BP 120/72; PULSE 112; RESP 16; TEMP 98.8; O2SAT 99
[2017-09-10] MEDS ORDERED: SODIUM CHLORIDE 0.9% FLUSH 10 ML FLUSH IV FLUSH SCH (09:00)
[2017-09-10 12:00] VITALS: BP 114/65; PULSE 101; RESP 16; TEMP 98.8; O2SAT 99
[2017-09-10] MEDS ORDERED: LEVO500T8 PO (12:46)
--- NOTE | 2017-09-10 12:47 | HHI.DCPOC ---
Discharge Care Plan Diagnosis: (1) Pneumonia (2) Sepsis Goals to Promote Your Health * To prevent worsening of your condition and complications * To maintain your health at the optimal level Directions to Meet Your Goals Take your medications as prescribed Follow your dietary instruction Follow activity as directed Keep your appointments as scheduled Take your immunizations and boosters as scheduled If your symptoms worsen call your PCP, if no PCP go to Urgent Care Center or Emergency Room Smoking is Dangerous to Your Health. Avoid second hand smoke Call the 24-hour hour crisis hotline for domestic abuse at Monalisa Royal MD Sep 10, 2017 12:47
--- NOTE | 2017-09-10 13:08 | HHI.HP ---
HPI Service [facility] Primary Care Physician No Primary Care Physician Admission Diagnosis sepsis, pneumonia, intractable nausea/vomiting Diagnoses: Chief Complaint: Fever and chills with nausea Travel History International Travel<30 Days: No Contact w/Intl Traveler <30 Da: No Traveled to Known Affected Are: No History of Present Illness Patient is 27-year-old female with minimal past history who had about 5 days of nausea, subjective fevers and chills and cough. She came to the emergency room when she could not keep any food down. She was dehydrated. She is also found to have a right upper lobe pneumonia. 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 Patient overnight was given IV hydration, IV antibiotics and dramatically improved. Her leukocytosis, tachycardia and temperature are greatly improved and the patient would do well to go home with follow-up with her primary care physician and treatment for community acquired pneumonia Review of Systems Constitutional: COMPLAINS OF: Fever, Chills, DENIES: Diaphoretic episodes, Fatigue, Weight gain, Weight loss, Dizziness, Change in appetite, Night Sweats Endocrine: DENIES: Abnorml menstrual pattern, Heat/cold intolerance, Polydipsia , Polyuria, Polyphagia Eyes: DENIES: Blurred vision, Diplopia, Eye inflammation, Eye pain, Vision loss , Photosensitivity, Double Vision Ears, nose, mouth, throat: DENIES: Tinnitus, Hearing loss, Vertigo, Nasal discharge, Oral lesions, Throat pain, Hoarseness, Ear Pain, Running Nose, Epistaxis, Sinus Pain, Toothache, Odynophagia Respiratory: COMPLAINS OF: Cough (or chills cough), DENIES: Apneas, Snoring, Wheezing, Hemoptysis, Sputum production, Shortness of breath Cardiovascular: DENIES: Chest pain, Palpitations, Syncope, Dyspnea on Exertion , PND, Lower Extremity Edema, Orthopnea, Claudication Gastrointestinal: COMPLAINS OF: Nausea, DENIES: Abdominal pain, Black stools, Bloody stools, Constipation, Diarrhea, Vomiting, Difficulty Swallowing, Anorexia Genitourinary: DENIES: Abnormal vaginal bleeding, Dysmenorrhea, Dyspareunia, Sexual dysfunction, Urinary frequency, Urinary incontinence, Urgency, Hematuria , Dysuria, Nocturia, Vaginal discharge Musculoskeletal: DENIES: Joint pain, Muscle aches, Stiffness, Joint Swelling, Back pain, Neck pain Integumentary: DENIES: Abnormal pigmentation, Pruritus, Rash, Nail changes, Breast masses, Breast skin changes, Nipple discharge Hematologic/lymphatic: DENIES: Bruising, Lymphadenopathy Immunologic/allergic: DENIES: Eczema, Urticaria Neurologic: DENIES: Abnormal gait, Headache, Localized weakness, Paresthesias, Seizures, Speech Problems, Tremor, Poor Balance Psychiatric: DENIES: Anxiety, Confusion, Mood changes, Depression, Hallucinations, Agitation, Suicidal Ideation, Homicidal Ideation, Delusions Except as stated in HPI: all other systems reviewed are Neg Past Family Social History Past Medical History Denies Past Surgical History Denies Reported Medications Reviewed in the EMR Allergies: Coded Allergies: No Known Allergies (Unverified , 09/09/17) Active Ordered Medications Reviewed in the EMR Family History Mom and dad are alive and healthy Social History No tobacco or alcohol dependency, lives with her fianc Physical Exam Vital Signs Vital Signs Date Time Temp Pulse Resp B/P (MAP) Pulse Ox O2 Delivery O2 Flow Rate FiO2 09/10/17 12:00 98.8 101 16 114/65 (81) 99 09/10/17 08:00 98.8 112 16 120/72 (88) 99 09/10/17 00:00 97.6 90 14 100/60 (73) 98 09/09/17 22:44 98.2 100 18 109/56 (73) 98 09/09/17 22:40 97.9 100 16 106/56 (73) 96 09/09/17 21:00 99.3 99 18 106/56 (73) 98 Room Air 09/09/17 20:01 18 09/09/17 20:00 100 18 104/56 (72) 96 Room Air 09/09/17 18:59 99.3 104 18 109/66 (80) 98 Room Air 09/09/17 18:06 99.7 116 18 106/59 (75) 98 Room Air 09/09/17 15:58 100.7 116 16 126/63 (84) 97 Physical Exam GENERAL: This is a well-nourished, well-developed patient, in no apparent distress. SKIN: No rashes, ecchymoses or lesions. Cool and dry. HEAD: Atraumatic. Normocephalic. No temporal or scalp tenderness. EYES: Pupils equal round and reactive. Extraocular motions intact. No scleral icterus. No injection or drainage. ENT: Nose without bleeding, purulent drainage or septal hematoma. Throat without erythema, tonsillar hypertrophy or exudate. Uvula midline. Airway patent. NECK: Trachea midline. No JVD or lymphadenopathy. Supple, nontender, no meningeal signs. CARDIOVASCULAR: Regular rate and rhythm without murmurs, gallops, or rubs. RESPIRATORY: Clear to auscultation. Breath sounds equal bilaterally. No wheezes , rales, or rhonchi. GASTROINTESTINAL: Abdomen soft, non-tender, nondistended. No hepato-splenomegaly , or palpable masses. No guarding. MUSCULOSKELETAL: Extremities without clubbing, cyanosis, or edema. No joint tenderness, effusion, or edema noted. No calf tenderness. Negative Homans sign bilaterally. NEUROLOGICAL: Awake and alert. Cranial nerves II through XII intact. Motor and sensory grossly within normal limits. Five out of 5 muscle strength in all muscle groups. Normal speech. Laboratory Laboratory Tests Test 09/09/17 18:10 09/09/17 18:15 09/09/17 18:30 09/09/17 18:50 Urine Color YELLOW Urine Turbidity SLIGHT Urine pH 6.0 Urine Specific [place] 1.034 Urine Protein 100 Urine Glucose (UA) NEG Urine Ketones 80 OR GREATER Urine Occult Blood LARGE Urine Nitrite NEG Urine Bilirubin NEG Urine Leukocyte Esterase NEG Urine RBC 100-200 Urine WBC 0-2 Urine Squamous Epithelial Cells 6-8 Urine Mucus MOD Microscopic Urinalysis Comment CULT NOT INDICATED White Blood Count 19.4 Red Blood Count 5.12 Hemoglobin 11.1 Hematocrit 36.0 Mean Corpuscular Volume 70.2 Mean Corpuscular Hemoglobin 21.6 Mean Corpuscular Hemoglobin Concent 30.8 Red Cell Distribution Width 15.3 Platelet Count 305 Mean Platelet Volume 8.4 Neutrophils (%) (Auto) 86.5 Lymphocytes (%) (Auto) 7.0 Monocytes (%) (Auto) 6.3 Eosinophils (%) (Auto) 0.0 Basophils (%) (Auto) 0.2 Neutrophils # (Auto) 16.8 Lymphocytes # (Auto) 1.4 Monocytes # (Auto) 1.2 Eosinophils # (Auto) 0.0 Basophils # (Auto) 0.0 CBC Comment AUTO DIFF Differential Total Cells Counted 100 Neutrophils % (Manual) 83 Band Neutrophils % 5 Lymphocytes % 7 Monocytes % 4 Neutrophils # (Manual) 17.3 Metamyelocytes 1 Differential Comment FINAL DIFF MANUAL Dohle Bodies PRESENT Platelet Estimate NORMAL Platelet Morphology Comment NORMAL Ovalocytes 1+ Prothrombin Time 13.7 Prothromb Time International Ratio 1.2 Activated Partial Thromboplast Time 34.3 Blood Urea Nitrogen 8 Creatinine 0.87 Random Glucose 91 Total Protein 8.5 Albumin 3.6 Calcium Level 8.7 Magnesium Level 1.8 Alkaline Phosphatase 92 Aspartate Amino Transf (AST/SGOT) 15 Alanine Aminotransferase (ALT/SGPT) 31 Total Bilirubin 1.1 Sodium Level 134 Potassium Level 3.6 Chloride Level 99 Carbon Dioxide Level 23.5 Anion Gap 12 Estimat Glomerular Filtration Rate 79 Troponin I LESS THAN 0.02 Beta HCG, Qualitative LESS THAN 1 Lactic Acid Level 1.7 Clue Cells (Wet Prep) NONE SEEN Vaginal Trichomonas (Wet Prep) NONE SEEN Vaginal Yeast (Wet Prep) NONE SEEN Chlamydia trachomatis DNA (PCR) NOT DETECTED Neisseria gonorrhoeae DNA (PCR) NOT DETECTED Test 09/10/17 05:40 White Blood Count 11.8 Red Blood Count 4.38 Hemoglobin 9.2 Hematocrit 30.5 Mean Corpuscular Volume 69.5 Mean Corpuscular Hemoglobin 21.1 Mean Corpuscular Hemoglobin Concent 30.3 Red Cell Distribution Width 14.9 Platelet Count 259 Mean Platelet Volume 8.0 Neutrophils (%) (Auto) 80.3 Lymphocytes (%) (Auto) 11.8 Monocytes (%) (Auto) 7.4 Eosinophils (%) (Auto) 0.3 Basophils (%) (Auto) 0.2 Neutrophils # (Auto) 9.5 Lymphocytes # (Auto) 1.4 Monocytes # (Auto) 0.9 Eosinophils # (Auto) 0.0 Basophils # (Auto) 0.0 CBC Comment AUTO DIFF Differential Comment AUTO DIFF CONFIRMED Blood Urea Nitrogen 7 Creatinine 0.60 Random Glucose 79 Calcium Level 7.8 Sodium Level 139 Potassium Level 3.5 Chloride Level 106 Carbon Dioxide Level 24.3 Anion Gap 9 Estimat Glomerular Filtration Rate 122 Date/Time Source Procedure Growth Status 09/09/17 18:30 Blood Peripheral Aerobic Blood Culture - Preliminary NO GROWTH IN 1 DAY Resulted 09/09/17 18:30 Blood Peripheral Anaerobic Blood Culture - Preliminary NO GROWTH IN 1 DAY Resulted 09/09/17 18:30 Nasal Aspirate Influenza Types A,B Antigen (BO) - Final NEGATIVE FOR FLU A AND B ANTIGEN.... Complete Result Diagram: 09/10/17 0540 09/10/[address] Angiography 09/09/[id number] Signed Impressions: Service Date/Time: Saturday, September 09, 2017 22:12 - CONCLUSION: Negative for pulmonary embolism. Dense consolidated infiltrate in the superior segment medially of the right lower lobe which accounts for the dense appearance and abnormality of the right hilum on AP chest. Phani Sumner MD Chest X-Ray 09/09/17 0000 Signed Impressions: Service Date/Time: Saturday, September 09, 2017 18:25 - CONCLUSION: Abnormal right hilar region asymmetrically more dense than the left without enlargement which could represent an occult infiltrate. Phani Sumner MD Septic Shock Reassessment Heart: Regular rate and rhythm Lungs: Clear Skin: Warm Peripheral Pulses: Bounding Right Radial Bounding Left Radial Bounding Right Popliteal Bounding Left Popliteal Bounding Right Dorsalis Pedis Bounding Left Dorsalis Pedis Bounding Right Posterior Tibial Bounding Left Posterior Tibial Caprini VTE Risk Assessment Caprini VTE Risk Assessment: No/Low Risk (score <= 1) Caprini Risk Assessment Model Point Value = 1 Point Value = 2 Point Value = 3 Point Value = 5 Age 41-60 Minor surgery BMI > 25 kg/m2 Swollen legs Varicose veins or History of unexplained or recurrent spontaneous Oral contraceptives or hormone replacement Sepsis (< 1 month) Serious lung disease, including pneumonia (< 1 month) Abnormal pulmonary function Acute myocardial infarction Congestive heart failure (< 1 month) History of inflammatory bowel disease Medical patient at bed rest Age 61-74 Arthroscopic surgery Major open surgery (> 45 min) Laparoscopic surgery (> 45 min) Malignancy Confined to bed (> 72 hours) Immobilizing plaster cast Central venous access Age >= 75 History of VTE Family history of VTE Factor V Leiden Prothrombin [id number] Lupus anticoagulant Anticardiolipin antibodies Elevated serum homocysteine Heparin-induced thrombocytopenia Other congenital or acquired thrombophilia Stroke (< 1 month) Elective arthroplasty Hip, pelvis, or leg fracture Acute spinal cord injury (< 1 month) Prophylaxis Regimen Total Risk Factor Score Risk Level Prophylaxis Regimen 0-1 Low Early ambulation 2 Moderate Order ONE of the following: *Sequential Compression Device (SCD) *Heparin 5000 units SQ BID 3-4 Higher Order ONE of the following medications: *Heparin 5000 units SQ TID *Enoxaparin/Lovenox 40 mg SQ daily (WT < 150 kg, CrCl > 30 mL/min) *Enoxaparin/Lovenox 30 mg SQ daily (WT < 150 kg, CrCl > 10-29 mL/min) *Enoxaparin/Lovenox 30 mg SQ BID (WT < 150 kg, CrCl > 30 mL/min) AND/OR *Sequential Compression Device (SCD) 5 or more Highest Order ONE of the following medications: *Heparin 5000 units SQ TID (Preferred with Epidurals) *Enoxaparin/Lovenox 40 mg SQ daily (WT < 150 kg, CrCl > 30 mL/min) *Enoxaparin/Lovenox 30 mg SQ daily (WT < 150 kg, CrCl > 10-29 mL/min) *Enoxaparin/Lovenox 30 mg SQ BID (WT < 150 kg, CrCl > 30 mL/min) AND *Sequential Compression Device (SCD) Assessment and Plan Problem List: (1) Pneumonia ICD Code: J18.9 - Pneumonia, unspecified organism Status: Acute Plan: Continue with oral antibiotics, overnight dramatically improved, able to swallow (2) Sepsis ICD Code: A41.9 - Sepsis, unspecified organism Status: Acute Plan: With fever, leukocytosis and tachycardia, dramatically improved overnight with leukocytosis and heart rate and temperature. Secondary to community-acquired pneumonia (3) Anemia ICD Code: D64.9 - Anemia, unspecified Plan: Likely secondary to menorrhagia, continue follow-up with primary care provider Problem Qualifiers (1) Sepsis: Qualified Codes: A41.9 - Sepsis, unspecified organism Monalisa Royal MD Sep 10, 2017 13:08
--- NOTE | 2017-09-10 13:21 | EKG ---
Date Performed: 09/09/2017 Time Performed: 19:27:00 PTAGE: 27 years EKG: Normal Sinus rhythm INCOMPLETE RIGHT BUNDLE BRANCH BLOCK NO PREVIOUS TRACING DOCTOR: Derrick Barnes Interpretating Date/Time 09/10/2017 13:20:30
[2017-09-10] MEDS ORDERED: AZITHROMYCIN INJ 500 MG in SODIUM CHLOR 0.9% 250 ML INJ 250 ML IV SCH (20:00)
[2017-09-10] MEDS ORDERED: cefTRIAXone INJ 1,000 MG in SODIUM CHLORIDE 0.9% INJ 100 ML IV SCH (20:00)
== END 2017-09-10 13:59 | disposition home or self-care (01) ==
LOC: PHED 15:46 → PHEDA 21:25 → PH3B 22:41
PROVIDERS: ADMIT Hospitalist; ATTEND Hospitalist
DX: J18.9 Pneumonia, unspecified organism (principal); A41.9 Sepsis, unspecified organism; D64.9 Anemia, unspecified; N92.0 Excessive and frequent menstruation with regular cycle; R00.0 Tachycardia, unspecified; N89.8 Other specified noninflammatory disorders of vagina; R11.2 Nausea with vomiting, unspecified; I45.10 Unspecified right bundle-branch block
CPT/HCPCS: 71010; 71275; 80048; 80053; 81001; 83605; 83735; 84484; 84703; 85007; 85025; 85027; 85610; 85730; 87040; 87210; 87491; 87591; 87804; 93005; 96361; 96365; 96366; 96375; 96376; 99285; G0378; J0456; J0696; J1885; J2405; J2765; J7030; J7050; Q9967